=== PATIENT | female | born 1970 | race Caucasian/White ===

== ENCOUNTER 2021-01-28 12:18 | Day surgery (SDC) | payer OTHER, SELFPAY ==
[2021-01-28] VITALS (18 sets, daily range): BP systolic 95–179; BP diastolic 62–97; PULSE 53–82; RESP 10–20; TEMP 36.2–37.2; O2SAT 97–100
--- NOTE | ~2021-01-28 | CT_ITS ---
EXAMINATION: CT abdomen pelvis w con EXAM DATE: 01/28/2021 14:00 INDICATION: Left lower quadrant pain. TECHNIQUE: Spiral CT of the abdomen and pelvis was performed following intravenous injection of 100 m L Omnipaque 350. Axial, coronal and sagittal images of the abdomen and pelvis were reviewed. The do se-length product (DLP) for this examination was 1674.86 mGy-cm. The exposure was tailored according to patient size (auto mA exposure control), and iterative reconstruction (ASIR) was used as addition al dose reduction technique. Comparison is made to prior examination from 12/15/2018. FINDINGS: Appendix is dilated to 11 mm diameter, appears fluid-filled and with mild adjacent inflamma tion. Appendix is located medial to the cecum, more midline than right lower quadrant. Probable acute uncomplicated appendicitis. The liver, spleen, adrenal glands and pancreas are unremarkable. The gallbladder is distended but ot herwise unremarkable. There is no biliary duct dilation. Portal and splenic veins are patent. Kidn eys enhance symmetrically. There is no hydronephrosis. Regions of left renal cortical scarring. The uterus is anteverted and morphologically normal. The bladder is unremarkable. There is no retrope ritoneal or pelvic lymphadenopathy. The stomach and small bowel are unremarkable. There is expected amount of colonic stool. No free i ntraperitoneal gas. The heart is normal in size. There are no pericardial or pleural effusions. T he lung bases are unremarkable. The bones are unremarkable. IMPRESSION: Probable acute uncomplicated appendicitis. Reviewed, dictated and finalized at location B.
[2021-01-28 13:02] LABS: Basophils Percent Auto 0.2 % (0.2-1.2); Hematocrit 50.5 % (37.0-47.0); Hemoglobin 16.1 g/dL (12.0-15.0); Immature Granulocyte Absolute 0.14 K/mm3 (0.00-0.031); Immature Granulocyte Percent A 0.8 % (0-0.5); Lymphocytes Absolute Auto 1.58 K/mm3 (0.9-3.2); Lymphocytes Percent Auto 8.8 % (18.3-44.2); Mean Corpuscular HGB Conc 31.9 g/dl (32-36); Mean Corpuscular Hemoglobin 25.6 pg (26-34); Mean Corpuscular Volume 80.3 fl (80-100); Monocytes Absolute Auto 0.5 K/mm3 (0.1-0.6); Monocytes Percent Auto 2.9 % (2.6-8.5); Neutrophils Absolute Auto 15.6 K/mm3 (1.3-6.7); Neutrophils Percent Auto 87.3 % (45.5-73.1); Platelet Count Result 375 k/mm3 (150-375); Red Blood Count 6.29 M/mm3 (4.2-5.4); Red Cell Distribution Width 16.3 % (11.5-14.5); White Blood Count 17.9 K/mm3 (4.5-10.0)
[2021-01-28 13:12] LABS: Add Urine Microscopic? YES; Appearance Urine Cloudy (Clear); Bilirubin Urine Negative (Negative); Blood Urine Negative (Negative); Color Urine Amber (Yellow); Glucose Urine UA Negative (Negative); Ketones Urine 1+ mg/dL (Negative); Leukocyte Esterase Ur 3+ LEU/UL (Negative); Mucus Urine Few /lpf; Nitrate Urine Negative (Negative); Protein Urine 1+ mg/dL (Negative); Specific Grav Ur 1.027 (1.001-1.035); Squamous Epithelial Cell Urine Many /hpf (Few); Urobilinogen Urine Negative mg/dL (<2.0); WBC Urine 31-50 /hpf
[2021-01-28 13:16] LABS: Alanine Aminotransferase 58 U/L (4-35); Albumin Level 4.1 g/dL (3.5-5.1); Alkaline Phosphatase 103 U/L (38-126); Anion Gap 13 mmol/L (8-16); Aspartate Amino Transferase 54 U/L (14-36); Bilirubin,Total 0.7 mg/dL (0.2-1.3); Blood Urea Nitrogen 13 mg/dL (7-17); Calcium 9.7 mg/dL (8.4-10.2); Carbon Dioxide 24 mmol/L (22-30); Chloride 100 mmol/L (98-107); Estimated CRCL calculation 169 ml/min; Estimated Glomerular Filt Rate > 60; Glucose 162 mg/dL (65-110); Lipase 25 U/L (23-300); Potassium 3.6 mmol/L (3.4-5.0); Sodium 137 mmol/L (137-145)
--- NOTE | 2021-01-28 13:27 | ED.ABDPAIN ---
HPI - Abdominal Pain General Chief Complaint: Abdominal Pain Stated Complaint: LLQ Abd Pain Hx Pancreatitis Time Seen by Provider: 01/28/21 13:06 Source: patient Mode of arrival: ambulatory Limitations: no limitations History of Present Illness HPI narrative: Patient is a 50-year-old female complaining of left lower quadrant pain, 9 out of 10, sharp, nonradiating accompanied by nausea and vomiting that started today. Patient states that she has a history of pancreatitis and this feels like 1. Patient denies any chest pain, shortness of, diarrhea, fever, chills or urinary symptoms. Patient does admit to recent alcohol use. Related Data Allergies Allergy/AdvReac Type Severity Reaction Status Date / Time tramadol Allergy Mild NAUSEA AND Verified 01/28/21 13:16 VOMITING tetracycline Allergy Unknown Unknown Verified 01/28/21 13:16 Review of Systems Review of Systems: All systems reviewed & are unremarkable except as noted in HPI and below Constitutional: Constitutional: Denies body ache(s), Denies chills, Denies excessive sweating, Denies fatigue, Denies fever(s), Denies headache(s), Denies lethargy, Denies malaise, Denies weakness and Denies weight loss Eyes: Eyes: Denies blurry vision, Denies change in vision and Denies loss of vision ENT: Denies dizziness, Denies ear discharge, Denies headache(s), Denies lip swelling, Denies epistaxis, Denies nasal congestion, Denies neck pain, Denies throat swelling and Denies tongue swelling Cardiovascular: Cardiovascular: Denies chest pain, Denies chest pain at rest, Denies chest pain with activity, Denies diaphoresis, Denies rapid heart rate, Denies edema, Denies irregular heart rhythm, Denies lightheadedness, Denies palpitations, Denies dyspnea and Denies dyspnea on exertion Respiratory: Respiratory: Denies chest congestion, Denies cough, Denies hemoptysis, Denies dyspnea and Denies dyspnea on exertion Gastrointestinal: Gastrointestinal: Denies melena, Denies hematochezia, Denies diarrhea and Denies hematemesis Musculoskeletal: Musculoskeletal: Denies abnormal gait, Denies deformity, Denies joint swelling, Denies limited range of motion, Denies neck pain and Denies numbness Neurologic: Denies Abnormal speech present, Denies abnormal gait, Denies confusion, Denies dizziness, Denies headache(s), Denies focal weakness, Denies loss of vision, Denies numbness, Denies Other visual disturbances, Denies Sensory deficit (Neuro) and Denies weakness Psychiatric: Psychiatric: Denies confusion, Denies depression, Denies auditory hallucinations, Denies homicidal ideation and Denies suicidal ideation Endocrine: Endocrine: Denies cold intolerance, Denies excessive sweating, Denies fatigue, Denies heat intolerance and Denies palpitations Hematologic/Lymphatic: Hematologic/Lymphatic: Denies easy bleeding and Denies easy bruising Allergic/Immunologic: Allergic/Immunologic: Denies lip swelling, Denies throat swelling and Denies tongue swelling PMFSH Family History Family History (Updated 12/25/15 @ 23:19 by DOCTOR UNKNOWN) Father Hypertension Family history of alcoholism Carcinoma of colon Family history of diabetes mellitus in first degree relative Family history of seizure disorder Mother Hypertension Family history of diabetes mellitus in first degree relative Family history of malignant neoplasm of breast in first degree relative Social History Social History Smoking status: Never smoker Alcohol intake: never Comments Past medical history: Pancreatitis Social history: Positive for smoker, occasional drug use(fentanyl and meth), alcohol Exam Const: General: cooperative, healthy appearing, comfortable, no acute distress, well developed, alert and awake; No confusion Orientation/consciousness: oriented to person, oriented to place, oriented to time, patient oriented x3 and No confusion Limitations: no limitations HENMT: Head: normal to inspection, normocephalic and atraumat
[2021-01-28] MEDS: LACTATED RINGERS 1,000 ML 999 ML IV CONT (13:40)
[2021-01-28] MEDS: PROMETHAZINE HCL 25 MG/ML AMPUL 12.5 MG IV PUSH (13:40)
[2021-01-28] MEDS: KETOROLAC 30 MG/ML VIAL (*BKC) IV PUSH (13:40)
[2021-01-28] MEDS: MORPHINE SULFATE (*CRX) 4 MG/ML INJ IV PUSH (14:31)
--- NOTE | 2021-01-28 15:41 | WPDANESEPPF ---
Anes - Initial Pre Proc Eval Procedure: Operation Date: 01/28/21 17:00 Proposed Procedures p Laparoscopic Appendectomy - Maribel Mckinney MD Date/Time: 01/28/21 15:41 Surgeon: Maribel Mckinney MD Pre Op Diagnosis: LLQ Abd Pain Hx Pancreatitis Patient Data Age: 50 Gender: F Height: 1.7 m Weight: 99 kg Last Vital Signs Temp 36.3 C L 01/28/21 12:34 Pulse 54 L 01/28/21 14:20 Resp 10 L 01/28/21 14:20 BP 179/85 H 01/28/21 14:20 Pulse Ox 99 01/28/21 13:12 Allergies Allergy/AdvReac Type Severity Reaction Status Date / Time tramadol Allergy Mild NAUSEA AND Verified 01/28/21 13:16 VOMITING tetracycline Allergy Unknown Unknown Verified 01/28/21 13:16 Laboratory Tests 01/28/21 01/28/21 01/28/21 12:48 12:48 12:48 WBC 17.9 K/mm3 H K/mm3 (4.5-10.0) RBC 6.29 M/mm3 H M/mm3 (4.2-5.4) Hgb 16.1 g/dL H g/dL (12.0-15.0) Hct 50.5 % H % (37.0-47.0) MCV 80.3 fl fl (80-100) MCH 25.6 pg L pg (26-34) MCHC 31.9 g/dl L g/dl (32-36) RDW 16.3 % H % (11.5-14.5) Plt Count 375 k/mm3 k/mm3 (150-375) MPV 9.0 fl fl (7.4-10.4) Immature Gran % (Auto) 0.8 % H % (0-0.5) Neut % (Auto) 87.3 % H % (45.5-73.1) Lymph % (Auto) 8.8 % L % (18.3-44.2) [place] % (Auto) 2.9 % % (2.6-8.5) Eos % (Auto) 0.0 % % (0-4.4) Baso % (Auto) 0.2 % % (0.2-1.2) Lymph # (Auto) 1.58 K/mm3 K/mm3 (0.9-3.2) [place] # (Auto) 0.5 K/mm3 K/mm3 (0.1-0.6) Eos # (Auto) 0.0 K/mm3 K/mm3 (0-0.3) Baso # (Auto) 0.0 K/mm3 K/mm3 (0.0-0.1) Abs Immat Gran (auto) 0.14 K/mm3 H K/mm3 (0.00-0.031) Absolute Neuts (auto) 15.6 K/mm3 H K/mm3 (1.3-6.7) Absolute Nucleated RBC 0.0 K/mm3 K/mm3 (0.0-0.012) Nucleated RBC % 0.0 % % (0.0-0.2) Sodium 137 mmol/L mmol/L (137-145) Potassium 3.6 mmol/L mmol/L (3.4-5.0) Chloride 100 mmol/L mmol/L (98-107) Carbon Dioxide 24 mmol/L mmol/L (22-30) Anion Gap 13 mmol/L mmol/L (8-16) BUN 13 mg/dL mg/dL (7-17) Creatinine 0.40 mg/dL L mg/dL (0.7-1.0) Estim Creat Clear Calc 169 ml/min ml/min Estimated GFR > 60 (59 - ) Glucose 162 mg/dL H mg/dL (65-110) Calcium 9.7 mg/dL mg/dL (8.4-10.2) Total Bilirubin 0.7 mg/dL mg/dL (0.2-1.3) AST 54 U/L H U/L (14-36) ALT 58 U/L H U/L (4-35) Alkaline Phosphatase 103 U/L U/L (38-126) Total Protein 8.0 g/dL g/dL (6.3-8.2) Albumin 4.1 g/dL g/dL (3.5-5.1) Lipase 25 U/L U/L (23-300) Urine Color [place] (Yellow) Urine Appearance Cloudy H (Clear) Urine pH 6.0 (5.0-9.0) Ur Specific [place] 1.027 (1.001-1.035) Urine Protein 1+ mg/dL H mg/dL (Negative) Urine Glucose (UA) Negative mg/dL mg/dL (Negative) Urine Ketones 1+ mg/dL H mg/dL (Negative) Ur Blood (Man) Negative (Negative) Urine Nitrate Negative (Negative) Urine Bilirubin Negative (Negative) Urine Urobilinogen Negative mg/dL mg/dL (<2.0) Leukocyte Esterase Rfl 3+ ELISABET/UL H ELISABET/UL (Negative) Urine RBC 11-20 /hpf H /hpf (0-2) Urine WBC 31-50 /hpf H /hpf Ur Squamous Epith Cells Many /hpf H /hpf (Few) Urine Mucus Few /lpf H /lpf Patient hx anesthesia problems: none Family hx anesthesia problems: none [facility] Family History Family History (Updated 12/25/15 @ 23:19 by DOCTOR UNKNOWN) Father Hypertension Family history of alcoholism Carcinoma of colon Family history of diabetes mellitus in first degree relative Family history of seizure disorder Mother Hypertension Family history of d
--- NOTE | 2021-01-28 15:57 | PM.IMHP ---
H&P: HPI History of Present Illness Date/Time: 01/28/21 15:57 Chief Complaint: Lower abd pain Narrative: 50 yo female who came to the ER with lower abdominal pain. Acute onset last night. She also deals with polysubstance abuse and last used 3 days ago. She is also a daily drinker with a history pancreatitis. She reports her last drink was 1 week ago. She reports associated vomiting and chills. ED workup showed acute uncomplicated appendicitis on CT scan. Labs showed leukocytosis. Patient seen in pre-op. Our service was called by Ed physician. She is still complaining of pain and chills. No other complaints at this time. Review of Systems Review of Systems: All systems reviewed & are unremarkable except as noted in HPI and below Constitutional: Constitutional: Reports as per HPI, Denies chills, Denies fatigue and Denies fever(s) ENT: Reports system reviewed and no additional complaints, except as documented Cardiovascular: Cardiovascular: Reports no additional cardiovascular complaints, Denies chest pain and Denies leg edema Respiratory: Respiratory: Reports no additional respiratory complaints, Denies cough and Denies dyspnea Gastrointestinal: Gastrointestinal: Reports as per HPI, Reports no additional gastrointestinal complaints and Reports abdominal pain Genitourinary: Genitourinary: Denies hematuria and Denies dysuria Musculoskeletal: Musculoskeletal: Denies joint swelling Neurologic: Reports system reviewed and no additional complaints, except as documented, Denies focal weakness, Denies numbness and Denies tingling PMFSH Past Medical History Medical History Alcohol abuse Polysubstance abuse Surgical History Surgical History History of tubal ligation Family History Family History Father Hypertension Family history of alcoholism Carcinoma of colon Family history of diabetes mellitus in first degree relative Family history of seizure disorder Mother Hypertension Family history of diabetes mellitus in first degree relative Family history of malignant neoplasm of breast in first degree relative Social History Social History Smoking packs per day: 0.5 Smoking cigarettes per day: 10.0 Years smoked: 5 Smoking pack-years: 2.50 Smoking status: Former smoker Alcohol intake: current Alcohol use details: Daily drinker, last drink was 1 week ago. Substance use: current Substance use type: amphetamines and other Other substance usage details: Fentanyl and meth Last use: 3 days ago Meds Home Medications and Allergies Allergies Allergy/AdvReac Type Severity Reaction Status Date / Time tramadol Allergy Mild NAUSEA AND Verified 01/28/21 13:16 VOMITING tetracycline Allergy Unknown Unknown Verified 01/28/21 13:16 Vital Signs Vital Signs - 24 hr 01/28/21 12:34 01/28/21 13:12 01/28/21 13:14 Temperature 97.3 F L Pulse Rate 56 L 82 Respiratory Rate 18 18 Blood Pressure 155/73 H 164/67 H 164/67 H Pulse Oximetry 99 99 01/28/21 13:16 01/28/21 13:31 01/28/21 14:19 Temperature Pulse Rate 53 L Respiratory Rate 18 Blood Pressure 164/80 H 178/87 H 179/85 H Pulse Oximetry 01/28/21 14:20 Temperature Pulse Rate 54 L Respiratory Rate 10 L Blood Pressure 179/85 H Pulse Oximetry Exam Const: General: no acute distress, alert and awake Nutritional Appearance: obese morbidly obese Orientation/consciousness: patient oriented x3 HENMT: Head: normocephalic and atraumatic Ears: hearing grossly normal bilaterally Mouth: Yes moist mucous membranes Eyes: General: appearance normal, both eyes and all related structures Sclera: sclerae normal Pupils: Equal, round and reactive pupils present EOM: EOMs intact bilaterally Neck: Ne
--- NOTE | 2021-01-28 16:51 | W.PM.PROC2 ---
Procedure Note - Detailed Date of Procedure 01/28/21 Pre-op Diagnosis acute appendicitis Post-op Diagnosis same Procedure Performed laparoscopic appendectomy Surgeon Maribel Mckinney MD Anesthesia general Indications 50 y/o F c h/o polysubstance abuse presenting c acute appendicitis Findings acute, uncomplicated appedicitis Description of Procedure The patient was taken to the operating room and placed in the supine position. After adequate induction of general anesthesia, the patient was prepped and draped in the normal sterile fashion. A time-out was then done to verify the patient's identity, as well as the procedure being performed. I began by making a 5 mm incision in the infraumbilical region, through this a Veress needle was placed in the peritoneal cavity. CO2 gas was then insufflated and after adequate pneumoperitoneum was achieved the Veress needle was removed. Then placed a 5 mm Optiview trocar under direct visualization into the peritoneal cavity. I then insufflated through this trocar site and the endoscope was placed into the trocar. Under direct visualization, placed 2 further 5 mm suprapubic port as well as an additional 12 mm port in the left lower abdomen. At this point identified the cecum, I retracted the cecum both medially and superiorly allowing me to expose the appendix. The appendix was noted to be very dilated and inflamed especially towards the tip. The appendix was noted to be very adherent to the right lateral sidewall as well as the ileum. I was able to bluntly dissect the appendix from these adhesions. I then was able to locate the base of the appendix with the cecum. I created a window with the [place] dissector between the appendix itself and the mesoappendix. I then transected the mesoappendix with a white vascular staple load. The Endo-RICHARD was then reloaded with a blue staple load and I transected the base of the appendix. Once the specimen was completely detached, an endo-pouch was placed into the 12 mm port site and the specimen was removed through the endo-pouch. The appendiceal specimen will be sent to pathology for further review. I then copiously irrigated the right lower quadrant. Hemostasis was noted at both staple lines no other pathology was seen in this area. I then moved the camera to the suprapubic port to check our its port of entry. No iatrogenic injury or other pathology was noted in the upper abdomen. I then closed the 12 mm port site with a Win code and 0 Vicryl suture under direct visualization. At this point, the abdomen was desufflated and all ports were removed. All port sites were closed with 4 Monocryl subcuticular suture. Dermabond was placed on all wounds. The patient tolerated the procedure well and was extubated in the operating room postop. He will be sent to the recovery room in stable condition. Estimated Blood Loss 10 Drains No Packing No Pathology yes Complications No immediate complications Condition stable Disposition PACU
[2021-01-28] MEDS: LACTATED RINGERS 1,000 ML 30 ML IV CONT ×2 (16:54)
[2021-01-28] MEDS: fentaNYL CITRATE INJ (*CRX) 100 MCG/2 ML VIAL 25 MCG IV PUSH ×4 (17:20→17:26)
[2021-01-28] MEDS: oxyCODONE HCL (*CRX) 5 MG TAB IR PO (17:55)
--- NOTE | 2021-01-28 18:49 | SUR.PHASEII ---
Patient left earring and necklace after discharge, called and spoke with patient/daughter, states d oes not want them ok to throw them away
== END 2021-01-28 18:45 | disposition home or self-care (01) ==
LOC: ANHED 14:49 → ANHSURGERY 15:15
PROVIDERS: Emergency Provider Emergency Medicine; Visit Provider Surgery
PROC: 0DTJ4ZZ Resection of Appendix, Percutaneous Endoscopic Approach (ICD-10-PCS; CPT 44970; principal; 2021-01-28 17:00)
DX: K35.30 Acute appendicitis with localized peritonitis, without perforation or gangrene (principal); F10.10 Alcohol abuse, uncomplicated; F19.10 Other psychoactive substance abuse, uncomplicated; Z87.891 Personal history of nicotine dependence; E66.9 Obesity, unspecified; Z68.34 Body mass index [BMI] 34.0-34.9, adult
CPT/HCPCS: 44970; 36415; 74177; 80053; 81001; 81025; 83690; 85025; 87086; 87088; 88304; 96361; 96365; 96375; 99285; A9270; J0330; J1100; J1170; J1885; J2250; J2270; J2405; J2543; J2550; J2704; J3010; J7030; J7120; Q9967

== ENCOUNTER 2021-12-10 14:31 | Emergency (ER) | payer OTHER, SELFPAY ==
[2021-12-10] VITALS (7 sets, daily range): BP systolic 124–140; BP diastolic 72–80; PULSE 60–79; RESP 10–16; TEMP 36.3–36.8; O2SAT 97–100
--- NOTE | ~2021-12-10 | XR_ITS ---
XR chest 2V 12/10/2021 15:07 Indication: Chest pain. Methamphetamine use. Procedure: 2 view chest Comparison: No prior studies for comparison. Findings: There are subtle infiltrates of the right middle lobe which may represent atelectasis or de veloping pneumonia. Heart size normal. Left lung clear. No pleural effusion or pneumothorax. Impression: 1: Subtle right middle lobe infiltrates which may represent atelectasis or developing pneumonia. Reviewed, dictated and finalized at location A. Impression: 1: Subtle right middle lobe infiltrates which may represent atelectasis or deve loping pneumonia.
--- NOTE | 2021-12-10 14:33 | ECG_ITS ---
Measurements Intervals [place] Rate: 66 P: 55 NE: 205 QRS: 73 QRSD: 83 T: 53 QT: 421 QTc: 441 Interpretive Statements SINUS RHYTHM NORMAL ECG Electronically Signed On 12-10-2021 18:40:27 CDT by Christ Valdes D.O.
--- NOTE | 2021-12-10 14:39 | ED.GENADULT ---
HPI - General Adult General Chief complaint: Chest Pain Stated complaint: reaction to taking drugs History of Present Illness HPI narrative: 51-year-old female presenting to the emergency department for evaluation of chest pain patient states that she has been having the chest pain for approximately 2 weeks. Patient states that she was going to get arrested and did take a dose of meth and 2 doses of fentanyl. Patient states that she does not often use meth and this is new for her. Patient states this is her normal dose of fentanyl. Patient does have chronic left knee pain and chronic lower extremity edema. Patient ingested at 1:15. Poison control wanted the patient observed for 4 hours. Related Data Allergies Allergy/AdvReac Type Severity Reaction Status Date / Time tramadol Allergy Mild NAUSEA AND Verified 01/28/21 13:16 VOMITING tetracycline Allergy Unknown Unknown Verified 01/28/21 13:16 Review of Systems Review of Systems: CONSTITUTIONAL: Denies fever, chills, or sweats. EYES: Denies visual changes, redness, or discharge. ENT: Denies rhinorrhea, congestion, sore throat, or otalgia. CARDIOVASCULAR: See HPI RESPIRATORY: Denies cough or dyspnea. GASTROINTESTINAL: Denies abdominal pain, nausea, vomiting, or diarrhea. GENITOURINARY: Denies dysuria or hematuria. SKIN: Denies rash or itching. MUSCULOSKELETAL: Denies back pain, joint pain, or myalgia. NEUROLOGIC: Denies headache, numbness, or weakness. [facility] Past Medical History Medical History Alcohol abuse Polysubstance abuse Surgical History Surgical History History of tubal ligation Family History Family History Father Hypertension Family history of alcoholism Carcinoma of colon Family history of diabetes mellitus in first degree relative Family history of seizure disorder Mother Hypertension Family history of diabetes mellitus in first degree relative Family history of malignant neoplasm of breast in first degree relative Social History Social History Smoking packs per day: 0.5 Smoking cigarettes per day: 10.0 Years smoked: 5 Smoking pack-years: 2.50 Smoking status: Former smoker Alcohol intake: current Alcohol use details: Daily drinker, last drink was 1 week ago. Substance use: current Substance use type: amphetamines and other Other substance usage details: Fentanyl and meth Last use: 3 days ago Exam Narrative: APPEARANCE: Well appearing, no pain, no distress, well-nourished. HEAD: normocephalic, atraumatic. EYES: PERRLA/EOMI, conjunctivae clear. NOSE: Normal no drainage EARS:TMS clear with good light reflex. THROAT: Pharynx clear, no exudate. NECK: Supple. No adenopathy, no masses. RESPIRATORY: Airway patent, respirations nonlabored. Clear to auscultation bilaterally, no rales, rhonchi, wheezing. CARDIOVASCULAR: Regular rate and rhythm without murmurs rubs or gallops. ABDOMINAL: Soft, nontender, nondistended, normal bowel sounds MUSCULOSKELETAL: Moves all extremities. Strength/ROM intact, No edema, No calf tenderness. NEURO: Alert. Cranial nerves II through XII intact. Grossly intact SKIN: Warm, dry. Normal Color Course Course Emergency Course: Patient was observed for approximately 4 hours and patient stated she needed to leave AMA. Vital Signs Vital signs: Vital Signs Pulse Rate 79 12/10/21 14:38 Respiratory Rate 12/10/21 14:38 Temperature 98.3 F 12/10/21 15:45 Pulse Rate 65 12/10/21 15:45 Respiratory Rate 11 L 12/10/21 15:45 Blood Pressure 124/74 12/10/21 15:45 Pulse Oximetry 99 12/10/21 15:45 Medical Decision Making Vital Signs Vital Signs: Vital Signs Pulse Rate 79 12/10/21 14:38 Respiratory Rate 12/10/21 14:38 Temperatur
[2021-12-10 14:52] LABS: Basophils Absolute Auto 0.1 K/mm3 (0.0-0.1); Basophils Percent Auto 0.8 % (0.2-1.2); Eosinophils Absolute Auto 0.2 K/mm3 (0-0.3); Eosinophils Percent Auto 3.5 % (0-4.4); Hematocrit 44.8 % (37.0-47.0); Hemoglobin 13.9 g/dL (12.0-15.0); Immature Granulocyte Absolute 0.02 K/mm3 (0.00-0.031); Immature Granulocyte Percent A 0.3 % (0-0.5); Lymphocytes Absolute Auto 1.93 K/mm3 (0.9-3.2); Lymphocytes Percent Auto 29.3 % (18.3-44.2); Mean Corpuscular Hemoglobin 25.4 pg (26-34); Mean Corpuscular Volume 81.8 fl (80-100); Mean Platelet Volume 8.6 fl (7.4-10.4); Monocytes Absolute Auto 0.5 K/mm3 (0.1-0.6); Monocytes Percent Auto 7.9 % (2.6-8.5); Neutrophils Absolute Auto 3.8 K/mm3 (1.3-6.7); Neutrophils Percent Auto 58.2 % (45.5-73.1); Platelet Count Result 286 k/mm3 (150-375); Red Blood Count 5.48 M/mm3 (4.2-5.4); Red Cell Distribution Width 14.6 % (11.5-14.5); White Blood Count 6.6 K/mm3 (4.5-10.0)
[2021-12-10 15:02] LABS: Alanine Aminotransferase 34 U/L (6-35); Albumin Level 3.7 g/dL (3.5-5.1); Alkaline Phosphatase 77 U/L (38-126); Anion Gap 1 mmol/L (8-16); Aspartate Amino Transferase 44 U/L (14-36); Bilirubin,Total 0.4 mg/dL (0.2-1.3); Blood Urea Nitrogen 12 mg/dL (7-17); Calcium 8.5 mg/dL (8.4-10.2); Carbon Dioxide 30 mmol/L (22-30); Chloride 107 mmol/L (98-107); Estimated Glomerular Filt Rate > 60; Glucose 103 mg/dL (65-110); Potassium 3.5 mmol/L (3.4-5.0); Sodium 138 mmol/L (137-145)
[2021-12-10 15:13] LABS: Troponin I < 0.012 ng/mL (0.000-0.034)
--- NOTE | 2021-12-10 16:25 | PC.NURSE ---
at 1548 spoke with Lucy at poison control and recommended to watch pt for 4-6 hrs after ingestion and give supportive care as needed
== END 2021-12-10 16:26 | disposition left against medical advice (07) ==
PROVIDERS: Emergency Provider Emergency Medicine
DX: F15.90 Other stimulant use, unspecified, uncomplicated (principal); F11.90 Opioid use, unspecified, uncomplicated; Z87.891 Personal history of nicotine dependence
CPT/HCPCS: 36415; 71046; 80053; 84484; 85025; 93005; 99284